=== PATIENT | female | born 2000 | race Caucasian/White ===

== ENCOUNTER 2021-09-22 06:02 | Observation (INO) ==
--- NOTE | 2021-09-14 09:08 | Anesthesiology Consultation ---
Date of Service September 14, 2021 Assessment & Plan (1) Encounter for pre-operative examination: - COVID screening: Per assessment on 09/14: No known COVID-19 positive contacts or current COVID-19 related symptoms. Travel screen negative. Patient vaccinated. Surgeon arranging preop COVID testing. Awaiting results. - Check test AM DOS Chart Review Chart Review: Acceptable Risk for Surgery and Patient NOT seen in Pre Admission Testing History Surgery Operation Date: 09/22/21 07:30 Proposed Procedures p Bilateral Breast Reduction - Marija Jerez MD Height/Weight Height: 5 ft 4 in Weight: 78.925 kg Allergies Allergy/AdvReac Type Severity Reaction Status Date / Time No Known Allergies Allergy Verified 12/03/19 13:05 Medications Home Medications Medication Instructions Recorded Confirmed Last Taken norgestimate 0.18 mg/0.215 mg/0.25 1 tab PO DAILY 09/08/21 09/14/21 Unknown mg-ethinyl estradiol 25 mcg tablet (Tri-Lo-Santa) oxycodone-acetaminophen 5 mg-325 1 tab PO Q4H PRN #18 tab 09/08/21 09/14/21 Unknown mg tablet (Endocet) Past Medical History Medical History Macromastia Past Family History Family History Father Hypertension Past Surgical History Surgical History H/O adenoidectomy Hx of myringotomy Social History Smoking Status: Never smoker Do You Dip or Chew Tobacco: No Hx Alcohol Use: No Hx Substance Use: No substance use type: does not use Lab Results Anesthesia Preop Results Results Anesthesia Widget: WBC 5.10 K/uL (4.8-10.8) 09/08/21 Hgb 14.5 g/dL (12.0-16.0) 09/08/21 Hct 40.9 % (37-47) 09/08/21 Plt 314 K/uL (130-400) 09/08/21 Na 137 mmol/L (136-145) 09/08/21 K 3.9 mmol/L (3.5-5.1) 09/08/21 Cl 105 mmol/L (98-107) 09/08/21 CO2 27 mmol/L (21-32) 09/08/21 BUN 20 mg/dl (6-23) 09/08/21 Creat 0.74 mg/dl (0.6-1.2) 09/08/21 Glucose Level 80 mg/dl (70-99(Fasting)) 09/08/21 PT 9.9 Seconds (9.0-12.0) 09/08/21 INR 0.9 (0.9-1.1) 09/08/21
[~2021-09-22 06:02] MED LIST: LR 15ML/HR IV SCH; ceFAZolin 2000MG 2,000 MG/15 ML SYR IV SCH
--- NOTE | 2021-09-22 06:50 | History & Physical Bridge Note ---
Date of Service September 22, 2021 History & Physical Bridge Note I have examined the patient, reviewed the History & Physical and in the interval since the performance of the History & Physical I have noted the following changes of clinical significance: no changes noted
[2021-09-22] MEDS ORDERED: ONDANSETRON INJ 2 MG/ML 2 ML VIAL IV PRN (06:56)
[2021-09-22] MEDS ORDERED: HYDROmorphone INJ 2 MG/ML SYR/VIAL IV PRN (06:56)
[2021-09-22] MEDS ORDERED: ePHEDrine sulfate 50 MG/ML AMP IV PRN (06:56)
[2021-09-22] MEDS ORDERED: ATROPINE SULFATE 0.1 MG/ML 10ML SYR IV PRN (06:56)
[2021-09-22] MEDS ORDERED: LIDOCAINE 1%/EPINEPHRINE 1:100,000 50 ML VIAL ONE (07:07)
[2021-09-22] MEDS ORDERED: BUPIVACAINE 0.25% 30 ML VIAL ONE (07:07)
[2021-09-22] MEDS ORDERED: ROCURONIUM BROMIDE 10 MG/ML 5 ML VIAL IV ONE (07:18)
[2021-09-22] MEDS ORDERED: MIDAZOLAM HCL 1 MG/ML 2ML VIAL ONE (07:18)
[2021-09-22] MEDS ORDERED: PROPOFOL IV EMULSION 10 MG/ML 20 ML VIAL IV ONE (07:18)
[2021-09-22] MEDS ORDERED: fentaNYL citrate 100 MCG/2 ML VIAL ONE ×2 (07:18→10:14)
[2021-09-22] MEDS ORDERED: DEXAMETHASONE SOD INJ 4 MG/ML VIAL ONE (10:14)
[2021-09-22] MEDS ORDERED: KETAMINE 50 MG/5 ML SYRINGE ONE (10:14)
[2021-09-22] MEDS ORDERED: ONDANSETRON INJ 2 MG/ML 2 ML VIAL ONE (10:14)
--- NOTE | 2021-09-22 10:45 | Post Operative Brief Note ---
PG Immediate Post Op with CF Date of Surgery September 22, 2021 Pre & Post Diagnosis Operation Date: 09/22/21 07:30 Pre-Op Diagnosis: Macromastia Post-Op Diagnosis: Macromastia I identified the patient and participated in the time-out.: Yes Procedure Operation Date: 09/22/21 07:30 Actual Procedures p Bilateral Breast Reduction(Bilateral) - Marija Jerez MD Surgeon Marija Jerez MD Parachute Repairer Kell Stern PA-C Estimated Blood Loss 20 Findings Consistent with Post-Op Diagnosis Specimens Specimen Description: A) Left Breast - weight 201 grams per lab. B) Right Breast- weight 198 grams per lab. Drains [place] Drain (bilateral)
--- NOTE | 2021-09-22 10:49 | Operative Report ---
PG Post Operative Report Pre & Post Diagnosis Operation Date: 09/22/21 07:30 Pre-Op Diagnosis: Macromastia Post-Op Diagnosis: Macromastia I identified the patient and participated in the time-out.: Yes Procedure Operation Date: 09/22/21 07:30 Actual Procedures p Bilateral Breast Reduction(Bilateral) - Marija Jerez MD Surgeon Marija Jerez MD Paper Feeder Kell Stern PA-C Estimated Blood Loss 20 Findings Consistent with Post-Op Diagnosis Specimens left breast 201 grams, right breast 200 grams to pathology Drains JPx2 Anesthesia Type General Complications none Indications back, neck and bilateral shoulder pain secondary to macromastia; desire for smaller breast size Description of Procedure The risks, benefits, and alternatives of the procedure were explained to the kalyn carvalho who agreed and signed consent. She was identified and marked in the preoperative holding area. She was brought to the operating room where she was positioned supine and placed under general anesthesia without incident. Surgical site was prepped and draped sterilely. A time-out procedure was performed. I began with the left side. Markings were reassessed and a 7 cm pedicle was marked. 1% lidocaine with epinephrine was used to anesthetize the planned incisions. A 42 mm cookie cutter was used to circumscribe the nipple-areolar complex. The previously marked 7 cm pedicle was incised using a 15 blade scalpel and deepithelialized. I began with the medial dissection of the pedicle using electrocautery. Cautery was used to incise through dermis and breast parenchyma down to the c hest wall, taking care not to undermine the pedicle during dissection. A similar procedure was undertaken on the lateral aspect of the pedicle again taking care not to undermine. Lastly, the pedicle was dissected out superiorly using electrocautery and this was carried down to the chest wall as well. I then began with excision of the medial breast tissue followed by lateral aspect of the breast tissue and surrounding keyhole incision. A 15 blade scalpel was used to make the inframammary fold incision and electrocautery was used to deepen the incision through dermis and breast parenchyma. Dissection was then carried superiorly to the level of the superior incision. Superior incision was then incised using a 15 blade scalpel and again dissected using electrocautery. This was undertaken laterally and then around the keyhole portion of the incision. Care was taken to leave some fat on the lateral pectoralis fascia in order to protect the T4 intercostal nerve. Hemostasis was achieved with electrocautery. The specimen was passed off in its entirety for weighing. Additional resection was undertaken from the superior flap in order to facilitate closure of the breast and to provide the best shape. The total resection weight of the left breast was 201 grams. The wound was irrigated with saline and hemostasis was achieved with electrocautery. 0.25% Marcaine plain was used to anesthetize the incisions as well as the pectoralis fascia. A 15 Burmese Art drain was brought out through a separate stab incision. The nipple-areolar complex was brought into the keyhole using 2-0 Vicryl deep dermal suture. The wound was closed first in a lateral to mid breast direction and then medial to mid breast direction using 2-0 Vicryl deep dermal sutures. Vertical limb was also primitivo roximated using 2-0 Vicryl deep dermals and the nipple-areolar complex was inset using 2-0 Vicryl deep dermal sutures. Next, the superficial dermal layer was closed using 3-0 PDS interrupted suture along the inframammary fold and 3-0 PDS interrupted dermal sutures along the vertical limb and nipple- areolar complex. Lastly 3-0 Monocryl running subcuticular suture was placed. A similar procedure was undertaken on the right side with maximal excision weight of 200 grams. Breasts were symmetric and nipple-areolar complexes were viable bilaterally following wound closure. Dermabond Prineo was applied along the inframammary fold and vertical limb and Dermabond was placed around the nipple-areolar complex. Dry dressings and a surgical bra were placed. The patient was awakened and transferred to recovery room in satisfactory condition. Kell Stern PA-C was present and scrubbed throughout the procedure and was instrumental in providing retraction during dissection of the pedicle and assisting in wound closure. I attest to the content of the Intraoperative Record and any orders documented therein. Any exceptions are noted below.
[2021-09-22] MEDS ORDERED: diphenhydrAMINE Capsule 25 MG CAP PO PRN (11:03)
[2021-09-22] MEDS ORDERED: diphenhydrAMINE 50 MG/ML VIAL IV PRN (11:03)
[2021-09-22] MEDS ORDERED: LORazepam 0.5 MG TAB PO PRN (11:03)
[2021-09-22] MEDS: fentaNYL citrate 100 MCG/2 ML VIAL IV PRN ×2 (11:10→11:14)
[2021-09-22] MEDS ORDERED: HYDROmorphone INJ 1 MG/ML SYRINGE ONE (13:08)
--- NOTE | 2021-09-22 13:09 | Surgery Progress Note ---
Date of Service September 22, 2021 Assessment & Plan (1) Status post breast reduction: Plan: Stable in PACU. Will spend tonight in med/surg with plans to d/c in AM. Will remove drains prior to d/c. Admission and Anticipated Discharge Date Admission Date: September 22, 2021 Subjective Patient seen in PACU- criteria met for transfer to med/surg, waiting on bed availability. VSS, pain controlled, tolerating crackers. Physical Exam Physical Exam: drains with 15cc serosang output. nipples sensate, pink, viable. Results & Data ([facility]) Vital Signs (Past 12 Hours) Vital Signs Temp Pulse Pulse Resp BP Pulse Ox O2 Del Method 09/22/21 13:00 89 16 157/89 H 99 Nasal Cannula 09/22/21 12:45 36.4 C L 75 16 138/69 99 Nasal Cannula 09/22/21 12:30 67 16 131/75 100 Nasal Cannula 09/22/21 12:15 79 15 136/66 100 Nasal Cannula 09/22/21 12:00 77 15 134/68 100 Nasal Cannula 09/22/21 11:45 72 16 132/74 100 Nasal Cannula 09/22/21 11:35 36.4 C L 73 16 143/78 H 99 Nasal Cannula 09/22/21 11:25 69 16 132/79 99 Nasal Cannula 09/22/21 11:15 75 16 137/80 99 Room Air 09/22/21 11:05 100 H 16 146/80 H 99 Room Air 09/22/21 10:57 36.2 C L 86 18 137/71 100 Room Air 09/22/21 06:24 36.9 C 105 H 20 138/81 100 O2 Flow Rate 09/22/21 13:00 2 09/22/21 12:45 2 09/22/21 12:30 2 09/22/21 12:15 2 09/22/21 12:00 2 09/22/21 11:45 2 09/22/21 11:35 2 09/22/21 11:25 2 09/22/21 11:15 09/22/21 11:05 09/22/21 10:57 09/22/21 06:24 PG Care Time/CCT Total # of Minutes Spent Total Time Spent with Patient: Total time spent is greater than 50% in coordination of care (as documented) at patient's floor/unit and/or counseling patient: Coding Level of Care Code None Diagnoses Status post breast reduction Z98.890
[2021-09-22] MEDS ORDERED: MoRPHine SULFATE 4 MG/ML 1 ML CARP\\VIAL IV PRN (14:23)
[2021-09-22] MEDS ORDERED: oxyCODONE/ACETAMINOPHEN 5mg/325mg TAB PO PRN (14:23)
[2021-09-22] MEDS ORDERED: ACETAMINOPHEN 325 MG TAB PO PRN (14:23)
[2021-09-22] MEDS ORDERED: ONDANSETRON 4 MG OD TAB PO PRN (14:23)
--- NOTE | 2021-09-22 14:26 | Anesthesiology Progress Note ---
Date of Service September 22, 2021 Anesthesia Post Procedure Vital Signs Vital Signs: Temp Pulse Pulse Resp BP Pulse Ox O2 Del Method 09/22/21 14:14 36.9 C 79 16 137/74 98 Room Air 09/22/21 13:40 36.9 C 85 16 147/85 H 98 Room Air 09/22/21 13:15 74 16 144/83 H 99 Nasal Cannula 09/22/21 13:00 89 16 157/89 H 99 Nasal Cannula 09/22/21 12:45 36.4 C L 75 16 138/69 99 Nasal Cannula 09/22/21 12:30 67 16 131/75 100 Nasal Cannula 09/22/21 12:15 79 15 136/66 100 Nasal Cannula 09/22/21 12:00 77 15 134/68 100 Nasal Cannula 09/22/21 11:45 72 16 132/74 100 Nasal Cannula 09/22/21 11:35 36.4 C L 73 16 143/78 H 99 Nasal Cannula 09/22/21 11:25 69 16 132/79 99 Nasal Cannula 09/22/21 11:15 75 16 137/80 99 Room Air 09/22/21 11:05 100 H 16 146/80 H 99 Room Air 09/22/21 10:57 36.2 C L 86 18 137/71 100 Room Air 09/22/21 06:24 36.9 C 105 H 20 138/81 100 O2 Flow Rate 09/22/21 14:14 09/22/21 13:40 09/22/21 13:15 2 09/22/21 13:00 2 09/22/21 12:45 2 09/22/21 12:30 2 09/22/21 12:15 2 09/22/21 12:00 2 09/22/21 11:45 2 09/22/21 11:35 2 09/22/21 11:25 2 09/22/21 11:15 09/22/21 11:05 09/22/21 10:57 09/22/21 06:24 Transfer of Care Handoff Completed per policy Notes Mental Status: alert / awake / arousable and participated in evaluation Patient Amnestic to Procedure: Yes Nausea / Vomiting: adequately controlled Pain: adequately controlled Airway Patency, RR, SpO2: stable & adequate BP & HR: stable & adequate Hydration State: stable & adequate Anesthetic Complications: no major complications apparent and Pt Satisfied with anesthetic care
[2021-09-22] MEDS: D5W AND 1/2NSS + 20MEQ KCL 20 MEQ/1,000 ML BAG IV SCH (16:03)
[2021-09-22] MEDS: oxyCODONE/ACETAMINOPHEN 5mg/325mg TAB PO PRN ×2 (16:32→20:23)
[2021-09-22] MEDS: ceFAZolin 2000MG 2,000 MG/15 ML SYR IV SCH ×2 (17:17→23:44)
[2021-09-22] MEDS: MoRPHine SULFATE 2 MG/ML CARP IV PRN ×2 (17:19→21:36)
[2021-09-22] MEDS ORDERED: CHLORASEPTIC 1.4% SOLN 180 ML BTL MT PRN (18:54)
[2021-09-23] MEDS: D5W AND 1/2NSS + 20MEQ KCL 20 MEQ/1,000 ML BAG IV SCH (03:15)
--- NOTE | 2021-09-23 08:34 | Surgery Progress Note ---
Date of Service September 23, 2021 Assessment & Plan (1) Status post breast reduction: Plan: Doing well POD#1. Drains removed. Discharge today with office follow-up tomorrow. Admission and Anticipated Discharge Date Admission Date: September 22, 2021 Subjective Pain well controlled over night. VSS. Tolerating regular diet and ambulating. Has voided mutliple times. Physical Exam Physical Exam: nipples pink and sensate. drains with serosang output- removed. incisions CDI Results & Data ([facility]) Vital Signs (Past 12 Hours) Vital Signs Temp Pulse Resp BP Pulse Ox O2 Del Method 09/23/21 07:35 36.7 C 65 16 101/66 98 Room Air 09/23/21 03:06 36.6 C 68 16 98/61 L 99 Room Air 09/22/21 23:26 36.4 C 60 16 98/59 L 98 Room Air PG Care Time/CCT Total # of Minutes Spent Total Time Spent with Patient: Total time spent is greater than 50% in coordination of care (as documented) at patient's floor/unit and/or counseling patient: Coding Level of Care Code None Diagnoses Status post breast reduction Z98.890
[2021-09-23] MEDS ORDERED: MULTIVITAMIN TAB PO SCH (09:00)
[2021-09-23] MEDS: oxyCODONE/ACETAMINOPHEN 5mg/325mg TAB PO PRN (10:56)
--- NOTE | 2021-09-23 15:52 | Discharge Summary ---
Date of Service September 23, 2021 Admission HPI Per Admitting Provider see admission H&P Admission Exam Per Admitting Provider macromastia Principal Diagnosis Encounter for Breast reconstruction Discharge Exam nipples pink, sensate, viable. incisions CDI. drains wih serosang output removed. Discharge Data Allergies Allergy/AdvReac Type Severity Reaction Status Date / Time No Known Allergies Allergy Verified 09/22/21 06:26 Procedures Performed Operation Date: 09/22/21 07:30 Actual Procedures p Bilateral Breast Reduction(Bilateral) - Marija Jerez MD Ordered Studies 09/22/21 05:00 US - OR guided needle placemen Routine Hospital Course (1) Status post breast reduction: Patient presented to [facility] with history of symptomatic macromastia. She was taken to the OR and underwent bilateral breast reduction. There were no intraoperative complications. She was taken to recovery and transferred to med/surg for observation. On POD#1, she was feeling well. She was tolerating a regular diet and ambulating. On exam, her vitals were stable. Her incisions were CDI and nipples viable. Her drains were removed. She was discharged home with instructions to follow-up in the office in one day. Total Time Total Time Spent Total Time Spent (In Minutes): 20 Total Time Includes: Examination of the Patient, Discharge Planning, Medication Reconciliation and Communication With Other Providers Discharge Plan Discharge Items Patient Disposition: Home - Self-Care Reason For Visit: Encounter for Cosmetic Surgery Discharge Diagnosis: s/p breast reduction Activity: As commented below Non-emergency contact: Surgeon Call non-emergency contact if: you have any medication questions, your pain is not controlled, you have a fever, your wound has increased redness and your wound has increased drainage Follow-up/Referrals: Kell Stern PA-C [Physician Program Coordinator [facility]] - 09/24/21 9:00 am (APPT WITH MING DYER PA-C) Janelle Aguilar D.O. [Primary Care Provider] - Diet: Regular Addtl Attending Provider Instructions: ACTIVITY RECOMMENDATIONS: __Normal activities _x_No bending, lifting or straining. Keep arms at shoulder height or below __No driving __Driving allowed when you are off pain medications _x_Walking permitted __You should have help at home for ___ days DRESSINGS: __No dressings required _x_Keep dressings dry/in place until first office visit __Remove dressings ___ and leave dressings off __Apply ice ___ days __Remove dressings and reapply garment __Apply antibiotic ointment (Bacitracin, Neosporin, etc) to wounds 3-4 times/day for 10 days BATHING: _x_Keep dressings dry _x_Sponge bathing permitted away from surgical site __Showering permitted _x_No swimming, hot tubs or soaking in a tub MEDICATIONS: Resume previous medications unless instructed otherwise by your surgeon. _x_Do not use aspirin, Motrin, Advil or Ibuprofen as these may promote bleeding. Please use Tylenol. _x_Prescription(s) provided: pain medication was provided at your last office visit OTHER INSTRUCTIONS: __Record drain output 2-3 times per day SPECIAL CARE INSTRUCTIONS: * It is normal to have a mild fever after surgery. If your temperature is higher than 101.5 degrees F, please call the office at [phone]. * Constipation is a typical side effect of pain medication. An [id number] stool softener will help relieve this. * Leaking around surgical drains may occur and should not cause concern. Sometimes these drains become clogged. If this happens, remove the bulb and milk the clot out of the tube, then replace the bulb. * Drainage from wounds after liposuction is normal and should be expected. Garments will become soiled. You should protect furniture and bedding. This drainage should mostly subside within 2-3 days. Leave garments in place unless instructed to remove them. * If you have unusual drainage from a wound or are concerned you have an infection or have any questions or concerns, please call the office at [phone]. FOLLOW UP VISIT: If not already scheduled, please call the office, , when you return home after surgery to schedule an appointment to be seen in _1__ days. Pending Studies at Discharge: Yes Studies:: pathology Stand-Alone Forms: My XTWIP, Opioid Pain Management, Smoking Cessation Medications and DC Order Prescriptions: Continued oxycodone-acetaminophen [Endocet] 5-325 mg tablet 1 tab PO Q4H PRN (Reason: pain) Qty: 18 0RF Rx Instructions: initial therapy Discontinued norgestimate-ethinyl estradiol [Tri-Lo-Santa] 0.18/0.215/0.25 mg-25 mcg tablet 1 tab PO DAILY Discharge Orders: Discharge Order (Routine); Ordered 09/23/21 Ordered By: Kell Stern Admission Data Admit Date/Time: 09/22/21 11:03 Attending Provider: Marija Jerez Admit Provider: Marija Jerez Primary Care Provider: Janelle Aguilar Other Interventions: Discharge Summary Assessment (RN) Last Done: 09/23/21 10:14 Coding Level of Care Code 81763 OBS Care - Discharge Diagnoses Status post breast reduction Z98.890
== END 2021-09-23 12:15 | disposition home or self-care (01) ==
LOC: ASU 06:02 → PACUINP 06:02 → 3W 14:16
DX: Z41.1 Encounter for cosmetic surgery; N62 Hypertrophy of breast